=== PATIENT | female | born 1985 | race Caucasian/White ===

== ENCOUNTER → 2017-11-07 17:56 | Outpatient (CLI) | payer OTHER, SELFPAY ==
--- NOTE | 2017-11-07 18:23 | MRI_ITS ---
STUDY: MRI BRAIN WITH AND WITHOUT CONTRAST REASON FOR EXAM: Female, 32 years old. Bilateral extremity numbness TECHNIQUE: Standardized multiplanar fat and water weighted pulse sequences were obtained. 6 ml of Gadavist contrast material was administered intravenously for the contrast portion of the examination. COMPARISON: February 16, 2015 FINDINGS: Normal size of the ventricles and extra-axial spaces for the patient's age. Normal white matter tracts of the supratentorial brain. Normal bilateral basal ganglia. Normal thalami. There is no extra-axial fluid accumulation. Normal flow voids within the major intracranial circulation suggesting patency by spin echo criteria. Normal venous enhancement. There is no enhancing intra-axial or extra-axial abnormality. Normal sella turcica, pituitary gland, infundibular stalk, optic chiasm and hypothalamus. Normal tectal plate and pineal gland. Normal midbrain, yahaira and medulla. Normal cerebellum. Normal basal cisterns. Normal bilateral temporal bones. Normal bilateral internal auditory canals. No demonstrated orbital abnormality, within the constraints of a routine brain study. Normal visualized paranasal sinuses. Normal calvarium and skull base. Normal visualized soft tissue structures. Normal visualized upper cervical spine. No significant change since prior exam MRI/Brain W/WO Contrast IMPRESSION: Normal unenhanced and enhanced MRI of the brain. Electronically Signed: Ramiro Romano MD at 22:22 EST , Service support ,
== END ==
PROVIDERS: Family Provider Family Medicine; PCP Family Medicine; Visit Provider Psychiatry & Neurology Neurology
DX: R20.0 Anesthesia of skin (principal)
CPT/HCPCS: 70553; A9585

== ENCOUNTER → 2018-01-23 07:20 | Outpatient (CLI) | payer OTHER, SELFPAY ==
--- NOTE | 2018-01-23 10:31 | NEURO ---
NCS and/or EMG Patient Report Ordering Doctor: Kendra Paniagua DATE OF SERVICE: 01/23/18 This is a bilateral upper extremity nerve conduction study and a right upper extremity EMG performed on this 32-year-old female with symptoms in her arms and legs intermittently for the past 3-1/2 years. Denies pain. She does not notice abnormal sensations in her right second digit. She has had 2 MRIs of her brain over the past 2 years which have been normal and she is healthy otherwise. She does not drink significant alcohol. Bilateral upper extremity sensory and motor nerve conduction studies are performed demonstrating prolongation of the median motor distal latencies bilaterally, mild on the left, moderate on the right. Amplitudes are mildly reduced but conduction velocities are preserved. The median sensory responses are normal. The ulnar motor and sensory and radial sensory responses are normal. Median and ulnar F-wave latencies are preserved. Right upper extremity needle electromyography is performed. Muscles evaluated included the first dorsal interosseous, abductor pollicis brevis, brachioradialis, biceps, triceps and deltoid muscles. All muscles demonstrated normal insertional activity with absence of pathologic spontaneous activity. Motor unit potential recruitment pattern and amplitude was normal in all muscles tested. Impression: Abnormal electrophysiologic study of the upper extremities consistent with mild carpal tunnel syndrome on the left and moderate carpal tunnel syndrome on the right. No evidence of radiculopathy or mononeuropathy otherwise.
== END ==
PROVIDERS: Family Provider Family Medicine; PCP Family Medicine; Visit Provider Psychiatry & Neurology Neurology
DX: R20.0 Anesthesia of skin (principal)
CPT/HCPCS: 95886; 95912

== ENCOUNTER → 2018-02-05 07:48 | Outpatient (CLI) | payer OTHER, SELFPAY ==
--- NOTE | 2018-02-05 10:03 | NEURO ---
NCS and/or EMG Patient Report Ordering Doctor: Kendra Paniagua DATE OF SERVICE: 02/05/18 Is a bilateral lower extremity nerve conduction study performed on this 32-year-old female with intermittent numbness in her legs for approximately 3 years. She describes mid back pain. She describes leg achiness and a sensation of swelling without actual swelling in her legs intermittently and stiffness when she sits on the commode for extended time periods or when she sits crosslegged. Previous EMG and nerve conduction study of the upper extremities demonstrated mild carpal tunnel syndrome. Brief examination demonstrates normal reflexes strength and sensation as well as normal muscle bulk. Bilateral lower extremity sensory and motor nerve conduction study was performed. The common peroneal motor responses bilaterally are intact. The tibial motor responses bilaterally are intact. The sural sensory, superficial peroneal sensory and medial plantar sensory responses are bilaterally preserved. F-wave latencies from the tibial and common peroneal nerves bilaterally are normal as are the tibial H reflexes bilaterally. Impression: Normal nerve conduction study of the bilateral lower extremities. EMG testing was deferred.
--- NOTE | 2018-02-05 10:06 | NEURO_ITS ---
NCS and/or EMG Patient Report Ordering Doctor: Kendra Paniagua DATE OF SERVICE: 02/05/18 Is a bilateral lower extremity nerve conduction study performed on this 32-year- old female with intermittent numbness in her legs for approximately 3 years. She describes mid back pain. She describes leg achiness and a sensation of swelling without actual swelling in her legs intermittently and stiffness when she sits on the commode for extended time periods or when she sits crosslegged. Previous EMG and nerve conduction study of the upper extremities demonstrated mild carpal tunnel syndrome. Brief examination demonstrates normal reflexes strength and sensation as well as normal muscle bulk. Bilateral lower extremity sensory and motor nerve conduction study was performed. The common peroneal motor responses bilaterally are intact. The tibial motor responses bilaterally are intact. The sural sensory, superficial peroneal sensory and medial plantar sensory responses are bilaterally preserved. F-wave latencies from the tibial and common peroneal nerves bilaterally are normal as are the tibial H reflexes bilaterally. Impression: Normal nerve conduction study of the bilateral lower extremities. EMG testing was deferred.
== END ==
PROVIDERS: Family Provider Family Medicine; PCP Family Medicine; Visit Provider Psychiatry & Neurology Neurology
DX: R20.0 Anesthesia of skin (principal)
CPT/HCPCS: 95912

== ENCOUNTER → 2018-07-17 16:49 | Outpatient (CLI) | payer OTHER, SELFPAY ==
[2018-07-22 13:07] LABS: HPV APTIMA, High Risk Negative (Negative)
== END ==
PROVIDERS: Family Provider Family Medicine; PCP Family Medicine; Referring Provider Obstetrics & Gynecology; Visit Provider Obstetrics & Gynecology
DX: Z12.4 Encounter for screening for malignant neoplasm of cervix (principal)
CPT/HCPCS: 87624; 88175; G0145

== ENCOUNTER → 2019-05-08 | Outpatient (CLI) | payer OTHER, SELFPAY ==
[2019-04-29 13:58] VITALS: BMI 21.7
--- NOTE | 2019-05-08 12:54 | US_ITS ---
STUDY: ULTRASOUND OF THE FEMALE PELVIS - COMPLETE REASON FOR EXAM: Female, 33 years old. Pelvic pain TECHNIQUE: Transabdominal and Transvaginal TECHNICAL QUALITY: Adequate. COMPARISON: None. FINDINGS: The uterus is anteverted and is tilted to the left side of the pelvis. The uterus measures 7.4 x 5.4 x 4.5 cm cm. Normal uterine cervix. The endometrium measures 11 mm in thickness, and is hyperechoic. There is no demonstrated endometrial mass. There is no demonstrated myometrial mass. The right ovary is visualized. The right ovary measures 2.8 x 2.8 x 2.5 cm. There is no right ovarian cyst or ovarian mass. There is no visualized right adnexal mass or complex lesion. There is normal arterial and normal venous vascularity. The left ovary is visualized. The left ovary measures 2.7 x 2.3 x 1.9 cm. There is no left ovarian cyst or ovarian mass. There is no visualized left adnexal mass or complex lesion. There is normal arterial and normal venous vascularity. There is no fluid in the cul-de-sac. US/Pelvic (Non ) IMPRESSION: Normal female pelvis. Electronically Signed: Yousif Kindra, at 16:57 EDT Tel , Service support ,
--- NOTE | 2019-05-08 12:54 | US_ITS ---
STUDY: ULTRASOUND OF THE FEMALE PELVIS - COMPLETE REASON FOR EXAM: Female, 33 years old. Pelvic pain TECHNIQUE: Transabdominal and Transvaginal TECHNICAL QUALITY: Adequate. COMPARISON: None. FINDINGS: The uterus is anteverted and is tilted to the left side of the pelvis. The uterus measures 7.4 x 5.4 x 4.5 cm cm. Normal uterine cervix. The endometrium measures 11 mm in thickness, and is hyperechoic. There is no demonstrated endometrial mass. There is no demonstrated myometrial mass. The right ovary is visualized. The right ovary measures 2.8 x 2.8 x 2.5 cm. There is no right ovarian cyst or ovarian mass. There is no visualized right adnexal mass or complex lesion. There is normal arterial and normal venous vascularity. The left ovary is visualized. The left ovary measures 2.7 x 2.3 x 1.9 cm. There is no left ovarian cyst or ovarian mass. There is no visualized left adnexal mass or complex lesion. There is normal arterial and normal venous vascularity. There is no fluid in the cul-de-sac. US/Transvaginal Non- IMPRESSION: Normal female pelvis. Electronically Signed: Yousif Kindra, at 16:57 EDT Tel , Service support ,
== END | disposition home or self-care (01) ==
LOC: OPUS 12:52
PROVIDERS: Family Provider Family Medicine; PCP Family Medicine; Referring Provider Obstetrics & Gynecology; Visit Provider Obstetrics & Gynecology
DX: R10.2 Pelvic and perineal pain (principal)
CPT/HCPCS: 76830; 76856; 93976

== ENCOUNTER → 2019-05-28 | Outpatient (CLI) | payer OTHER, SELFPAY ==
[2019-05-28 13:09] VITALS: BMI 21.7
== END | disposition home or self-care (01) ==
LOC: LABSPEC 16:17
PROVIDERS: Family Provider Family Medicine; PCP Family Medicine; Referring Provider Nurse Practitioner Women's Health; Visit Provider Nurse Practitioner Women's Health
DX: N39.0 Urinary tract infection, site not specified (principal)
CPT/HCPCS: 87086; 87088

== ENCOUNTER 2020-01-19 08:00 | Outpatient (RCR) | payer OTHER, SELFPAY ==
[2019-07-28 08:14] VITALS: BMI 21.7
--- NOTE | 2020-01-07 17:52 | HP.PTEVAL ---
Patient's Visit Information ARLIN CASTREJON is a 34 year old F referred to Physical Therapy by Dr. Richard Perez MD with a diagnosis of pelvic pain/ LBP. Date of Evaluation: 01/07/20 Physical Therapist: SURYA Sinha - Visit Plan Frequency: 1-2x /Week Duration: 4-6 Weeks Plan: 1-2X/ week for 4-6 weeks for centralization of L anterior hip/groin pain using extension centralization principle, self OP with sag, and then progression to MT if needed. Once pain is more centralized work on postural exercises and core stability with HEP. May use modalities if needed. - Subjective Subjective: Pt has had a pain in her low pelvic area for 9 months or so and went to OBGYN at the end of last summer and they did an US og ovaries and that was fine and then went to PCP but did not. SHe tried more exercises, supplements, stretching and nothing worked and then it started to get worse and constant. She went to the Dr and he basically said he wanted to try tests but insurance would not cover it. She has always had LBP and it feels like it is compressed espcailly toward the end of the night. No N&T or weakness in legs. She has some L front of leg tingling a little. Pain is constant. If she changes positions her pain remains the same. She has an inversion table and that helps take the pressure off.....once off the inversion table the pain is right back. It feels like everything in her back is cruching when off the inversion table. She does not remember hurting herself. Pain is just straight across her LB for years and years. SHe has no weakness in her legs. She has night groin pain that wakes her up 4-5X/ week. It started to get worse in the last 3 month.... - Pain back pain Pain Intensity (Out of 10): 4 L groin pain Pain Intensity (Out of 10): 4 - Objective Gait: Normal gait pattern. Normal and able to walk on heels and toes. Trunk AROM: flexion 100%, EXt 25%, SB B and Rot B 75%. Patellar DTR's 2+/3. LE MMT: B hip ext 4/5, B hip abd 4+/5, B hip flex 4-/5, B knee flex and knee ext 4/5. Prone.... tightness in her LB. Prone to SHASHA.... stretching feeling in her spine. SHASHA to press ups..... 3X 10.... Pt very stiff in her back and was not able to come up to full ROM press up and did like to contract her buttocks during the press up. After doing the press ups she was able to walk with no L anterior hip pain. After the press ups she sat back down in the chair and after about 5 minutes the pain started to come back into her hip. We discussed and I demonstrated how to use a lumbar roll ro maintain good posture. - Goals Goal 1:: I HEP Goal Time Frame: 4-6 Weeks Goal 2:: Increase trunk AROM by 25% into extension to equal 50% extension ROM Goal Time Frame: 4-6 Weeks Goal 3:: Sit with upright posture during treatment sessions Goal Time Frame: 4-6 Weeks Goal 4:: Be able to abolish anterior hip pain Goal Time Frame: 4-6 Weeks - Rehabilitation Potential Rehabilitation Potential: Good - Anticipated Interventions Patient/Client Instruction: Educate patient on: Condition, Plan of Care For the Purpose of:: To decrease pain, To increase ROM, To improve nutrient delivery to tissue, To improve muscle performance and motor function, To improve ability to perform ADL's, To increase tolerance to activity/condition/position, To improve performance and independence with ADL's, To decrease level of supervision to perform tasks, To improve ability of physical actions for home/community/work/leisure, To improve gait and locomotor functions, To improve health of tissue, To increase flexibility/ROM Therapeutic Exercise to Include: Strength training, Body mechanics, Postural training, Flexibilty training, Passive ROM, Active ROM, Dynamic Lumbar Stabilization, Brown Exercises For the Purpose of:: To decrease pain, To increase ROM, To improve nutrient delivery to tissue, To improve muscle performance and motor function, To improve ability to perform ADL's, To increase tolerance to activity/condition/position, To improve health of tissue, To decrease soft tissue restriction, To increase flexibility/ROM Manual Therapy Techniques to Include: Mobilization, Soft tissue mobilization For the Purpose of:: To decrease pain, To increase ROM, To improve nutrient delivery to tissue, To improve muscle performance and motor function, To improve ability to perform ADL's, To increase tolerance to activity/condition/position, To improve health of tissue, To increase flexibility/ROM IF ES: Yes Cryotherapy (ice pack, ice massage): Yes Thermo therapy (hot pack): Yes Ultrasound (thermal/non thermal): Yes For the Purpose of:: To decrease pain, To improve nutrient delivery to tissue Thank you for the opportunity to evaluate your patient. For Medicare and Medicare HMO plans, please review the plan of care and approve it. It will need to be FAXED BACK to us at [phone] for Medicare purposes. For Medicare only, by signing this I certify the plan of care. Please let me know if there are questions or concerns regarding this plan of care. Physician Signature: Date:
--- NOTE | 2020-01-19 17:47 | HP.PTDCSUM ---
It has been my pleasure to treat ARLIN CASTREJON referred by Dr. Richard Perez MD, with the diagnosis of pelvic pain/ LBP for a total of 3 visit(s). Discharge Date: 01/19/20 Please see the following information for a summary of their discharge status. Subjective: Pt reports that she has had no change since starting PT and she feels that she has some swollen lymph nodes down in her groin and wants to call the Dr today. Pain is not constant and it comes and goes for no apparent reason or positioning. No N&T. No leg weakness. She does have some occassionl tingling with certain exercises she stated awhile afterwards. She has occassional back pain. The exercises that we have done here in the clinic have helped increase her spine ROM but it has not affected her hip positively or negatvley. back pain Pain Intensity (Out of 10): 0 L groin pain Pain Intensity (Out of 10): 2 % Improvement: 0 Objective/Function: Improvement in extension ROM but no improvement in L groin pain Goal 1:: I HEP Goal Progress: Goal Met Goal 2:: Increase trunk AROM by 25% into extension to equal 50% extension ROM Goal Progress: Progressing Goal 3:: Sit with upright posture during treatment sessions Goal Progress: Goal Met Goal 4:: Be able to abolish anterior hip pain Goal Progress: Not Progressing Plan: 1-2X/ week for 4-6 weeks for centralization of L anterior hip/groin pain using extension centralization principle, self OP with sag, and then progression to MT if needed. Once pain is more centralized work on postural exercises and core stability with HEP. May use modalities if needed. Discharge Comments: DC PT to physician If there are questions or concerns regarding this patient's physical therapy, please feel free to call me at [phone]. Thank you for the referral of this patient. Sincerely, Zunilda Maria, MPT
== END 2020-01-19 19:00 | disposition home or self-care (01) ==
LOC: PT 08:00
PROVIDERS: PCP Family Medicine; Referring Provider Family Medicine; Visit Provider Family Medicine
DX: R10.2 Pelvic and perineal pain (principal); M54.5 Low back pain
CPT/HCPCS: 97110; 97161; 97530

== ENCOUNTER → 2020-01-23 08:22 | Outpatient (CLI) | payer OTHER, SELFPAY ==
[2019-07-28 08:14] VITALS: BMI 21.7
--- NOTE | 2020-01-23 08:24 | CT_ITS ---
STUDY: CT ABDOMEN AND PELVIS WITH CONTRAST REASON FOR EXAM: Female, 34 years old. LEFT SIDE PELVIC PAIN X 9 MONTHS RADIATION DOSAGE (If Supplied By Facility): CTDIvol = ( 12.15 ) mGy, DLP = ( 369.80 ) mGycm TECHNIQUE: Transaxial images were obtained from the dome of the diaphragm to the symphysis pubis with oral contrast. Oral and amp; IV Readi-CAT and amp; 100mL Isovue-300 was administered. Sagittal and coronal images were reconstructed. Individualized dose optimization techniques were used for this CT. COMPARISON: None. FINDINGS: The visualized lung bases are unremarkable. The visualized portions of the heart are within normal limits. Normal liver. Normal gallbladder and extrahepatic biliary system. Normal spleen. Normal pancreas. Normal bilateral adrenal glands. Normal right kidney. Normal left kidney. Normal visualized stomach. Normal small intestine. Normal colon. The appendix is visualized and appears normal. Normal abdominal aorta. Normal inferior vena cava. Normal retroperitoneum. Normal urinary bladder. Follicles are seen in the left ovary. The largest measures 1.1 cm. Normal abdominal wall. Normal osseous structures. CT/Abdomen/Pelvis WITH Contrast IMPRESSION: Follicle seen in the left ovary. Electronically Signed: Richy Stein, at 8:53 EDT , Service support ,
== END ==
PROVIDERS: PCP Family Medicine; Referring Provider Family Medicine; Visit Provider Family Medicine
DX: R10.2 Pelvic and perineal pain (principal)
CPT/HCPCS: 74177; Q9967

== ENCOUNTER → 2020-01-29 09:02 | Outpatient (CLI) | payer OTHER, SELFPAY ==
[2019-07-28 08:14] VITALS: BMI 21.7
[2020-01-29 10:55] LABS: Absolute Lymphocyte Count 1.78 X10^3/uL (0.83-4.51); Absolute Neutrophil Count 4.2 X10^3/uL (2.0-7.7); Basophil# 0.06 X10^3/uL; Basophil% 0.9 % (0-1); Eosinophil# 0.05 X10^3/uL; Eosinophils% 0.8 % (0-5); Hematocrit 45.3 % (37-47); Hemoglobin 14.8 g/dL (12.0-15.0); Lymphocyte # 1.78 X10^3/ul (4.0); Lymphocyte % 27.1 % (19-41); Mean Corp Hgb Conc 32.7 g/dL (32-36); Mean Corpuscular Hgb 30.4 pg (27.0-32.0); Monocyte% 7.6 % (0-10); NRBC Flagged by Analyzer 0 % (0-5); Neutrophil # 4.15 X10^3/uL (2.7-7.7); Neutrophil % 63.3 % (47-70); Platelet Count 249 K/mm3 (150-450); RBC Distribution Width CV 12.9 % (11.6-14.6); RBC Distribution Width SD 43.8 fl (35.1-43.9); Red Blood Count 4.87 M/mm3 (4.2-5.4); White Blood Count 6.6 K/mm3 (4.4-11.0)
[2020-01-29 11:13] LABS: Erythrocyte Sedimentation Rate 2 mm/hr (0-20)
[2020-01-29 12:52] LABS: ALB/GLOB Ratio 1.6 RATIO (0.9-2.4); AST(SGOT) 23 U/L (15-37); Alanine Aminotransfer ALT/SGPT 20 U/L (13-56); Albumin, Serum 4.7 g/dL (3.2-5.0); Alkaline Phosphatase 57 U/L (45-117); Anion Gap 5 (5-15); BUN 10 mg/dL (7-18); CRP < 2.90 mg/L (0.0-3.0); Calcium,Total 8.8 mg/dL (8.5-10.1); Chloride 107 mmol/L (98-107); Creatinine, Serum 0.67 mg/dL (0.55-1.02); EST Glomerular Filtration Rate 106 mL/min (>60); Est Glom Filt Rate - Afr Amer 128 mL/min (>60); Glucose 83 mg/dL (74-106); Potassium 4.2 mmol/L (3.5-5.1); Protein, Total 7.7 g/dL (6.4-8.2); Sodium Level 140 mmol/L (136-145)
== END ==
PROVIDERS: PCP Family Medicine; Visit Provider Family Medicine
DX: R59.1 Generalized enlarged lymph nodes (principal)
CPT/HCPCS: 36415; 80053; 85025; 85652; 86140

== ENCOUNTER → 2020-02-13 10:22 | Outpatient (CLI) | payer OTHER, SELFPAY ==
[2019-07-28 08:14] VITALS: BMI 21.7
[2020-02-13 13:29] LABS: HIV - WCH Non-Reactive (Nonreactive); Hepatitis C Antibody Non-Reactive (Nonreactive)
[2020-02-13 17:37] LABS: Chlamydia Trachomatis by PCR Negative (Negative); Neisserai gonorrhoeae by PCR Negative (Negative); Probe Check PASS; Sample Adequacy Control PASS; Specimen Processing Control PASS
[2020-02-19 03:36] LABS: Rapid Plasmin Reagin (RPR) NONREACTIVE (NONREACTIVE)
== END ==
PROVIDERS: PCP Family Medicine; Referring Provider Family Medicine; Visit Provider Family Medicine
DX: R10.2 Pelvic and perineal pain (principal)
CPT/HCPCS: 36415; 86592; 86703; 86803; 87491; 87591

== ENCOUNTER → 2020-04-06 11:16 | Outpatient (CLI) | payer OTHER, SELFPAY ==
[2020-02-26 09:04] VITALS: BMI 21.7
[2020-04-06 13:21] LABS: Vitamin B12 510 pg/mL (211-911)
[2020-04-11 22:21] LABS: Vitamin B1, Thiamine 83.8 nmol/L (66.5-200.0)
== END ==
PROVIDERS: PCP Family Medicine; Referring Provider Family Medicine; Visit Provider Family Medicine
DX: G62.9 Polyneuropathy, unspecified (principal)
CPT/HCPCS: 36415; 82607; 84425

== ENCOUNTER → 2020-08-10 11:41 | Outpatient (CLI) | payer OTHER, SELFPAY ==
[2020-02-26 09:04] VITALS: BMI 21.7
[2020-08-10 15:19] LABS: Absolute Lymphocyte Count 1.36 X10^3/uL (0.83-4.51); Absolute Neutrophil Count 3.8 X10^3/uL (2.0-7.7); Basophil# 0.04 X10^3/uL; Basophil% 0.7 % (0-1); Eosinophil# 0.03 X10^3/uL; Eosinophils% 0.5 % (0-5); Lymphocyte # 1.36 X10^3/ul (4.0); Lymphocyte % 24.1 % (19-41); Mean Corp Hgb Conc 32.6 g/dL (32-36); Mean Corpuscular Hgb 30.8 pg (27.0-32.0); Mean Corpuscular Volume 94.7 fL (81-99); Mean Platelet Vol. 9.2 fl (6.2-12.0); Monocyte# 0.41 X10^3/uL; Monocyte% 7.3 % (0-10); NRBC Flagged by Analyzer 0 % (0-5); Neutrophil # 3.77 X10^3/uL (2.7-7.7); Neutrophil % 66.9 % (47-70); Platelet Count 288 K/mm3 (150-450); RBC Distribution Width CV 12.2 % (11.6-14.6); RBC Distribution Width SD 42.9 fl (35.1-43.9); Red Blood Count 4.54 M/mm3 (4.2-5.4); White Blood Count 5.6 K/mm3 (4.4-11.0)
[2020-08-10 15:35] LABS: Thyroid Stim Hormone (TSH) 3.37 uIU/mL (0.358-3.74)
[2020-08-12 21:41] LABS: CMV Antibody IgG < 0.60 U/mL (0.00-0.59); EBV Acute VCA IgM < 36.0 U/mL (0.0-35.9); EBV Nuclear Antigen IgG < 18.0 U/mL (0.0-17.9)
== END ==
PROVIDERS: PCP Family Medicine; Referring Provider Family Medicine; Visit Provider Family Medicine
DX: R59.0 Localized enlarged lymph nodes (principal); R53.83 Other fatigue
CPT/HCPCS: 36415; 84443; 85025; 86644; 86664; 86665

== ENCOUNTER → 2020-09-06 12:45 | Outpatient (CLI) | payer OTHER, SELFPAY ==
[2020-02-26 09:04] VITALS: BMI 21.7
--- NOTE | 2020-09-06 12:49 | CT_ITS ---
STUDY: CT SOFT TISSUE NECK WITH CONTRAST REASON FOR EXAM: Female, 35 years old. LT SIDED PALPABLE NECK MASS SINCE NOVEMBER. HAS NOT GROWN IN SIZE. MARKED WITH BB. RADIATION DOSAGE (If Supplied By Facility): CTDIvol = ( 10.88 ) mGy, DLP = ( 345.10 ) mGycm TECHNIQUE: The patient was scanned in a multi-detector CT scanner. High resolution transaxial imaging was performed following intravenous administration of IV 75mL Isovue-300. Sagittal and coronal images were reconstructed. Individualized dose optimization techniques were used for this CT. COMPARISON: None. FINDINGS: Normal bilateral parotid glands. Normal bilateral telesales advisor spaces. Normal bilateral parapharyngeal spaces. Normal bilateral carotid spaces. Normal bilateral sublingual and submandibular glands and spaces. Normal visualized nasopharynx. Normal retropharyngeal space. Normal perivertebral space. Normal visualized bilateral faucial tonsils. The visualized tongue, tongue base and oropharynx are normal. The visualized cervical lymph nodes (levels I-) are within normal size limits, and maintain normal morphology. 2 x 6 mm left posterior triangle lymph node just posterior to the left sternocleidomastoid muscle corresponding to the patient''s palpable abnormality. There is no demonstrated solid or cystic mass lesion. There is no abnormal contrast enhancement. Normal epiglottis, bilateral vallecula and hypopharynx. The pre-epiglottic and paraglottic adipose spaces are normal. Normal visualized bilateral piriform sinuses, aryepiglottic folds, vocal cords, and arytenoid-cricoid articulations. Normal subglottic trachea. Normal bilateral lobes of the thyroid gland. Normal visualized pulmonary apices. Normal visualized paranasal sinuses. Normal visualized cervical spine. CT/Soft Tissue Neck WITH Contrast IMPRESSION: Normal enhanced CT examination of the soft tissues of the neck. Palpable abnormality corresponds to a 2 x 6 mm left posterior triangle lymph node. Electronically Signed: Rashad Huff MD at 13:41 EST Tel , Service support ,
== END ==
PROVIDERS: PCP Family Medicine; Referring Provider Otolaryngology; Visit Provider Otolaryngology
DX: R22.0 Localized swelling, mass and lump, head (principal)
CPT/HCPCS: 70491; Q9967

== ENCOUNTER 2021-11-21 14:28 | Outpatient (CLI) | payer OTHER, SELFPAY ==
[2021-11-21 17:34] LABS: Absolute Lymphocyte Count 1.54 X10^3/uL (0.83-4.51); Absolute Neutrophil Count 4.8 X10^3/uL (2.0-7.7); Basophil# 0.04 X10^3/uL; Basophil% 0.6 % (0-1); Eosinophil# 0.02 X10^3/uL; Eosinophils% 0.3 % (0-5); Hematocrit 39.8 % (37-47); Hemoglobin 13.3 g/dL (12.0-15.0); Lymphocyte # 1.54 X10^3/ul (0.83-4.51); Mean Corp Hgb Conc 33.4 g/dL (32-36); Mean Corpuscular Hgb 30.9 pg (27.0-32.0); Mean Corpuscular Volume 92.6 fL (81-99); Mean Platelet Vol. 9.2 fl (6.2-12.0); Monocyte# 0.56 X10^3/uL; NRBC Flagged by Analyzer 0 % (0-5); Neutrophil # 4.82 X10^3/uL (2.7-7.7); Neutrophil % 68.8 % (47-70); Platelet Count 252 K/mm3 (150-450); RBC Distribution Width CV 12.3 % (11.6-14.6); RBC Distribution Width SD 42.5 fl (35.1-43.9)
[2021-11-21 18:28] LABS: ALB/GLOB Ratio 1.2 RATIO (0.9-2.4); AST(SGOT) 21 U/L (15-37); Alanine Aminotransfer ALT/SGPT 20 U/L (13-56); Albumin, Serum 4.1 g/dL (3.2-5.0); Alkaline Phosphatase 49 U/L (45-117); Anion Gap 7 (5-15); BUN 10 mg/dL (7-18); BUN/Creat Ratio 12.8 RATIO (10-20); Calcium,Total 8.9 mg/dL (8.5-10.1); Chloride 107 mmol/L (98-107); Creatinine, Serum 0.78 mg/dL (0.55-1.02); EST Glomerular Filtration Rate 87 mL/min (>60); Est Glom Filt Rate - Afr Amer 106 mL/min (>60); Ferritin 10 ng/mL (8-252); Globulin 3.3 g/dL (2.2-4.2); Glucose 95 mg/dL (74-106); Potassium 3.5 mmol/L (3.5-5.1); Protein, Total 7.4 g/dL (6.4-8.2); Sodium Level 141 mmol/L (136-145); Thyroid Stim Hormone (TSH) 3.12 uIU/mL (0.358-3.74)
[2021-11-23 13:25] LABS: Thyroid Peroxidase AB 9 IU/mL (0-34)
== END 2021-11-21 23:59 | disposition home or self-care (01) ==
LOC: MTLAB 14:30
PROVIDERS: Referring Provider Physician Assistant; Visit Provider Physician Assistant
DX: L65.9 Nonscarring hair loss, unspecified (principal); L68.0 Hirsutism
CPT/HCPCS: 36415; 80053; 82728; 84443; 85025; 86038; 86376

== ENCOUNTER 2021-11-25 17:09 | Outpatient (CLI) | payer OTHER, SELFPAY ==
[2021-12-05 20:51] LABS: HPV APTIMA, High Risk Negative (Negative)
== END 2021-11-25 23:59 | disposition home or self-care (01) ==
PROVIDERS: Visit Provider Obstetrics & Gynecology
DX: Z12.4 Encounter for screening for malignant neoplasm of cervix (principal)
CPT/HCPCS: 87624; 88175; G0145

== ENCOUNTER 2021-12-07 11:59 | Outpatient (CLI) | payer OTHER, SELFPAY ==
[2021-12-07 15:19] LABS: Absolute Lymphocyte Count 1.61 X10^3/uL (0.83-4.51); Basophil# 0.03 X10^3/uL; Basophil% 0.4 % (0-1); Eosinophil# 0.02 X10^3/uL; Eosinophils% 0.3 % (0-5); Hematocrit 40.9 % (37-47); Lymphocyte # 1.61 X10^3/ul (0.83-4.51); Lymphocyte % 22.5 % (19-41); Mean Corp Hgb Conc 34.2 g/dL (32-36); Mean Corpuscular Hgb 31.5 pg (27.0-32.0); Mean Corpuscular Volume 92.1 fL (81-99); Mean Platelet Vol. 9.1 fl (6.2-12.0); Monocyte# 0.43 X10^3/uL; NRBC Flagged by Analyzer 0 % (0-5); Neutrophil # 5.03 X10^3/uL (2.7-7.7); Neutrophil % 70.5 % (47-70); Platelet Count 312 K/mm3 (150-450); Red Blood Count 4.44 M/mm3 (4.2-5.4); White Blood Count 7.1 K/mm3 (4.4-11.0)
[2021-12-07 15:53] LABS: Rheumatoid Factor < 10.0 IU/mL (<15); Thyroid Stim Hormone (TSH) 4.89 uIU/mL (0.358-3.74)
[2021-12-09 16:06] LABS: Anti-dsDNA Ab 2 IU/mL (0-9)
[2021-12-14 17:25] LABS: HLA B27 Negative (.)
== END 2021-12-07 23:59 | disposition home or self-care (01) ==
LOC: MFPLAB 12:00
PROVIDERS: PCP Family Medicine; Referring Provider Family Medicine; Visit Provider Family Medicine
DX: M54.50 Low back pain, unspecified (principal); F39 Unspecified mood [affective] disorder
CPT/HCPCS: 36415; 81374; 84443; 84481; 85025; 86225; 86431

== ENCOUNTER → 2022-01-12 | Outpatient (CLI) | payer OTHER, SELFPAY ==
[2022-01-12 12:41] LABS: Free T3 2.9 pg/mL (2.18-3.98); T4 Free Direct 0.94 ng/dL (0.76-1.46); Thyroid Stim Hormone (TSH) 3.38 uIU/mL (0.358-3.74)
[2022-01-13 14:09] LABS: Anti-Scleroderma-70 AB <0.2 AI (0.0-0.9)
[2022-01-13 15:58] LABS: ANTINUCLEAR ANTIBODIES DIRECT Negative (Negative)
[2022-01-14 11:22] LABS: Anti-Thyroglobulin AB < 1.0 IU/mL (0.0-0.9); Thyroglobulin, Serum Qt. 34.3 ng/mL (1.5-38.5)
== END | disposition home or self-care (01) ==
LOC: MFPLAB 09:44
PROVIDERS: PCP Family Medicine; Referring Provider Family Medicine; Visit Provider Family Medicine
DX: E03.9 Hypothyroidism, unspecified (principal); R76.8 Other specified abnormal immunological findings in serum
CPT/HCPCS: 36415; 84432; 84439; 84443; 84481; 86038; 86235; 86800

== ENCOUNTER → 2022-02-23 | Outpatient (CLI) | payer OTHER, SELFPAY ==
[2022-02-24 16:42] LABS: ANTINUCLEAR ANTIBODIES DIRECT Negative (Negative)
== END | disposition home or self-care (01) ==
LOC: MFPLAB 09:58
PROVIDERS: PCP Family Medicine; Visit Provider Family Medicine
DX: R76.8 Other specified abnormal immunological findings in serum (principal)
CPT/HCPCS: 36415; 86038

== ENCOUNTER → 2022-03-16 | Outpatient (CLI) | payer OTHER, SELFPAY ==
--- NOTE | 2022-03-16 08:19 | RAD_ITS ---
STUDY: X-RAY - ABDOMEN/PELVIS REASON FOR EXAM: Female, 36 years old. sitz day 3 TECHNIQUE: Single AP view of the abdomen / pelvis. COMPARISON: None. FINDINGS: Normal visualized lung bases. There is an unremarkable bowel gas pattern. The visualized liver, spleen and kidneys are grossly normal in size and morphology. Normal soft tissue structures. Normal visualized osseous structures. RAD/Abdomen Single View IMPRESSION: Normal x-ray examination of the abdomen and pelvis. Electronically Signed: Rashad Huff MD at 8:56 EDT ,
== END | disposition home or self-care (01) ==
LOC: RAD 08:18
PROVIDERS: PCP Family Medicine; Referring Provider Internal Medicine Gastroenterology; Visit Provider Internal Medicine Gastroenterology
DX: R10.9 Unspecified abdominal pain (principal)
CPT/HCPCS: 74018

== ENCOUNTER → 2022-07-11 | Outpatient (CLI) | payer OTHER, SELFPAY ==
--- NOTE | 2022-07-11 12:44 | CT_ITS ---
STUDY: CT ABDOMEN AND PELVIS WITH CONTRAST REASON FOR EXAM: Female, 37 years old. Left sided abdominal pain -- oral X 2 YEARS RADIATION DOSAGE (If Supplied By Facility): CTDIvol = ( 9.22 ) mGy, DLP = ( 292.21 ) mGycm TECHNIQUE: Transaxial images were obtained from the dome of the diaphragm to the symphysis pubis with oral contrast. Oral and amp; IV Redi-CAT and amp; 75mL Isovue-300 was administered. Sagittal and coronal images were reconstructed. Individualized dose optimization techniques were used for this CT. COMPARISON: Comparison is made with prior study dated 01/23/2020. FINDINGS: The visualized lung bases are unremarkable. The visualized portions of the heart are within normal limits. Normal liver. Normal gallbladder and extrahepatic biliary system. Normal spleen. Normal pancreas. Normal bilateral adrenal glands. Normal right kidney. Normal left kidney. Normal visualized stomach. Normal small intestine. Normal colon. The appendix is visualized and appears normal. Normal abdominal aorta. Normal inferior vena cava. Normal retroperitoneum. Normal urinary bladder. Follicles are seen in both ovaries. Normal abdominal wall. Straightening of the normal lumbar lordosis. CT/Abdomen/Pelvis WITH Contrast IMPRESSION: Normal enhanced CT of the abdomen and pelvis. Electronically Signed: Richy Stein MD at 13:14 EDT ,
== END | disposition home or self-care (01) ==
LOC: CT 12:43
PROVIDERS: PCP Family Medicine; Referring Provider Internal Medicine Gastroenterology; Visit Provider Internal Medicine Gastroenterology
DX: R10.9 Unspecified abdominal pain (principal)
CPT/HCPCS: 74177; Q9967

== ENCOUNTER → 2022-08-01 | Outpatient (CLI) | payer OTHER, SELFPAY ==
[2022-08-01 13:32] LABS: Erythrocyte Sedimentation Rate 3 mm/hr (0-30)
[2022-08-01 13:46] LABS: Absolute Lymphocyte Count 1.79 X10^3/uL (0.83-4.51); Absolute Neutrophil Count 4.9 X10^3/uL (2.0-7.7); Basophil# 0.05 X10^3/uL; Basophil% 0.7 % (0-1); Eosinophil# 0.04 X10^3/uL; Eosinophils% 0.6 % (0-5); Hematocrit 42.8 % (37-47); Hemoglobin 14.5 g/dL (12.0-15.0); Lymphocyte # 1.79 X10^3/ul (0.83-4.51); Lymphocyte % 24.8 % (19-41); Mean Corp Hgb Conc 33.9 g/dL (32-36); Mean Corpuscular Hgb 30.5 pg (27.0-32.0); Mean Corpuscular Volume 90.1 fL (81-99); Mean Platelet Vol. 9.3 fl (6.2-12.0); Monocyte# 0.48 X10^3/uL; Monocyte% 6.6 % (0-10); NRBC Flagged by Analyzer 0 % (0-5); Neutrophil # 4.85 X10^3/uL (2.7-7.7); Platelet Count 282 K/mm3 (150-450); RBC Distribution Width CV 12.3 % (11.6-14.6); RBC Distribution Width SD 40.7 fl (35.1-43.9); Red Blood Count 4.75 M/mm3 (4.2-5.4); White Blood Count 7.2 K/mm3 (4.4-11.0)
[2022-08-01 13:54] LABS: Hemoglobin A1c 5.1 % (3.8-5.6)
[2022-08-01 14:09] LABS: ALB/GLOB Ratio 1.4 RATIO (0.9-2.4); AST(SGOT) 22 U/L (15-37); Alanine Aminotransfer ALT/SGPT 22 U/L (13-56); Albumin, Serum 4.6 g/dL (3.2-5.0); Alkaline Phosphatase 61 U/L (45-117); Anion Gap 9 (5-15); BUN 9 mg/dL (7-18); BUN/Creat Ratio 13.1 RATIO (10-20); CRP < 2.90 mg/L (0.0-3.0); Calcium,Total 9.2 mg/dL (8.5-10.1); Chloride 103 mmol/L (98-107); Creatinine, Serum 0.69 mg/dL (0.55-1.02); EST Glomerular Filtration Rate 101 mL/min (>60); Est Glom Filt Rate - Afr Amer 122 mL/min (>60); Globulin 3.2 g/dL (2.2-4.2); Glucose 86 mg/dL (74-106); LDH 170 U/L (84-246); Potassium 3.7 mmol/L (3.5-5.1); Protein, Total 7.8 g/dL (6.4-8.2); Sodium Level 137 mmol/L (136-145)
[2022-08-03 12:08] LABS: Anti-Centromere B Ab <0.2 AI (0.0-0.9); Anti-Chromatin <0.2 AI (0.0-0.9); Anti-Jo <0.2 AI (0.0-0.9); Anti-Scleroderma-70 AB <0.2 AI (0.0-0.9); RNP Ab <0.2 AI (0.0-0.9); SJOGREN'S Anti-SS-A test < 0.2 AI (0.0-0.9); SJOGREN'S Anti-SS-B test < 0.2 AI (0.0-0.9); Smith Ab <0.2 AI (0.0-0.9)
[2022-08-03 16:09] LABS: Endomysial Antibody IgA Negative (Negative)
[2022-08-04 15:06] LABS: Anti-dsDNA Ab 3 IU/mL (0-9)
[2022-08-04 15:08] LABS: Immunoglobulin A 138 mg/dL (87-352); t-Transglutaminase IgA <2 U/mL (0-3)
[2022-08-09 15:08] LABS: Albumin 4.6 g/dL (2.9-4.4); Alpha-1-Globulins 0.3 g/dL (0.0-0.4); Alpha-2-Globulins 0.7 g/dL (0.4-1.0); Cytoplasmic Ab (C-ANCA) <1:20 titer (Neg:<1:20); Gamma Globulin 0.9 g/dL (0.4-1.8); Immunoglobulin A 133 mg/dL (87-352); Immunoglobulin E 13 IU/mL (6-495); Immunoglobulin G 946 mg/dL (586-1602); Immunoglobulin M 98 mg/dL (26-217); PROEL- TOTAL PROTEIN 7.4 g/dL (6.0-8.5)
[2022-08-09 16:06] LABS: Perinuclear Ab (P-ANCA) <1:20 titer (Neg:<1:20)
== END | disposition home or self-care (01) ==
LOC: LAB 11:30
PROVIDERS: PCP Family Medicine; Visit Provider Internal Medicine Gastroenterology
DX: R10.9 Unspecified abdominal pain (principal)
CPT/HCPCS: 36415; 80053; 82784; 82785; 83036; 83516; 83615; 84165; 85025; 85652; 86140; 86225; 86235; 86255; 86256; 86334

== ENCOUNTER 2022-09-28 09:08 | Outpatient (CLI) | payer OTHER, SELFPAY ==
[2022-09-28 10:53] LABS: Thyroid Stim Hormone (TSH) 3.42 uIU/mL (0.358-3.74)
[2022-09-29 16:09] LABS: Cytoplasmic Ab (C-ANCA) <1:20 titer (Neg:<1:20)
[2022-09-29 20:07] LABS: Perinuclear Ab (P-ANCA) <1:20 titer (Neg:<1:20)
== END 2022-09-28 23:59 | disposition home or self-care (01) ==
PROVIDERS: PCP Family Medicine; Referring Provider Internal Medicine Gastroenterology; Visit Provider Internal Medicine Gastroenterology
DX: R10.9 Unspecified abdominal pain (principal); R22.1 Localized swelling, mass and lump, neck
CPT/HCPCS: 36415; 84443; 86256

== ENCOUNTER → 2022-10-04 | Outpatient (CLI) | payer OTHER, SELFPAY ==
[2022-10-05 15:08] LABS: Anti-Centromere B Ab <0.2 AI (0.0-0.9); Anti-Chromatin <0.2 AI (0.0-0.9); Anti-Jo <0.2 AI (0.0-0.9); Anti-Scleroderma-70 AB <0.2 AI (0.0-0.9); RNP Ab <0.2 AI (0.0-0.9); SJOGREN'S Anti-SS-A test < 0.2 AI (0.0-0.9); SJOGREN'S Anti-SS-B test < 0.2 AI (0.0-0.9); Smith Ab <0.2 AI (0.0-0.9)
[2022-10-05 17:51] LABS: Anti-Mitochondrial AB <20.0 Units (0.0-20.0); Anti-Smooth Muscle ABS 45 Units (0-19); Anti-dsDNA Ab 2 IU/mL (0-9)
== END | disposition home or self-care (01) ==
PROVIDERS: PCP Family Medicine; Referring Provider Internal Medicine Gastroenterology; Visit Provider Internal Medicine Gastroenterology
DX: R76.8 Other specified abnormal immunological findings in serum (principal)
CPT/HCPCS: 36415; 83516; 86225; 86235

== ENCOUNTER → 2023-01-29 | Outpatient (CLI) | payer OTHER, SELFPAY ==
[2023-02-03 15:08] LABS: HPV APTIMA, High Risk Negative (Negative)
== END | disposition home or self-care (01) ==
LOC: LABSPEC 11:27
PROVIDERS: PCP Family Medicine; Referring Provider Registered Nurse; Visit Provider Registered Nurse
DX: Z12.4 Encounter for screening for malignant neoplasm of cervix (principal)
CPT/HCPCS: 87624; 88175; G0145

== ENCOUNTER → 2023-09-28 | Outpatient (CLI) | payer OTHER, SELFPAY ==
--- NOTE | 2023-09-28 10:36 | BI_ITS ---
MAMMOGRAPHY - BILATERAL SCREENING REASON FOR EXAM: Female, 38 years old. Routine annual screening examination. PERTINENT HISTORY: Mother with breast cancer. Grandmother with breast cancer. TECHNIQUE: Digital bilateral breast zehra (3D mammographic acquisition) in the CC and MLO projections. 2-D mediolateral oblique (MLO) and craniocaudad (CC) views of both breasts were obtained. CAD: Full Field Digital Mammography with Computer Added Detection was performed. COMPARISON: Comparison is made with prior outside examination dated March 18, 2015. FINDINGS: Breast Composition: The breasts are extremely dense, which lowers the sensitivity of mammography. There are no dominant masses or suspicious calcifications. No other significant abnormalities are identified. There has been no significant change since the prior study. BI/SCRN MAMM (CAD)W/ZEHRA BILAT IMPRESSION: Stable bilateral screening mammogram. Yearly follow-up mammogram recommended. (A) ASSESSMENT CATEGORY: BIRADS Category 1: Negative. A letter regarding these results will be sent to the patient by the facility within 30 days. Approximately 10% of breast cancers are not detected by mammography. A normal mammogram should not delay biopsy of a clinically suspicious abnormality. [id number] Electronically Signed: Richy Stein MD at 15:24 EST ,
--- OUTSIDE RECORDS SUMMARY | 2023-09-28 11:47 | XMS RPT_ITS | CCD ---
Author Name Unknown Address [address] [place] [address] Organization [facility] Care Team Providers Care Long Line Teamster Name Role Phone Joanne Rossi LPN N Unavailable Unavailab le Flo MCFADDEN, Joanne N Unavailable Unavailab le Flo MCFADDEN, Joanne N Unavailable Unavailab le Medications Completed/Discontinued Medications Medication Drug Class(es) Dates Sig (Normalized) Sig (Original) predniSONE 10 mg oral tablet (3 sources) Corticosteroid Start: 03-04-2017 PREDNISONE 10 MG TABS Take 4 pills for 3 days, 3 pills for 3 days, 2 pills for 3 days and 1 pill for 3 days PREDNISONE [id number] Christina Sullivan PA-C Problems Problem Classification Problem Date Documented Da te Episodic/Chronic Other connective tissue disease (2 sources) Swelling of lower limb; Translations: [Localized swelling, mass and lump, right lower limb] Onset: 03-04-2017 03-04-2017 Episodic Other skin disorders (3 sources) Eruption; Translations: [Rash and other nonspecific skin eruption] Onset: 03-04-2017 03-04-2017 Episodic Results Test Name Value Interpretation Reference Range Facil ity Vital Signs Date Time Vital Sign Value Performing Clinician Faci renetta 03-04-2017 08:25-0400 BMI (Body Mass Index) 22.39 kg/m2 Joanne Rossi LPN [facility] No w Clinic Work Phone: 03-04-2017 08:25-0400 Body Temperature 98.9 [degF] Joanne Rossi LPN [facility] Now Cli ravi Work Phone: 03-04-2017 08:25-0400 BP Diastolic 62 mm[Hg] Joanne Rossi LPN [facility] Now [facility] ic Work Phone: 03-04-2017 08:25-0400 BP Systolic 112 mm[Hg] Joanne Rossi LPN [facility] Now [facility] Work Phone: 03-04-2017 08:25-0400 Height 160.02 cm Joanne Rossi LPN [facility] Now [facility] Work Phone: 03-04-2017 08:25-0400 Pulse (Heart Rate) 90 /min Joanne Rossi LPN [facility] Now C linic Work Phone: 03-04-2017 08:25-0400 Pulse Oximetry 99 % Joanne Rossi LPN [facility] Now [facility] ic Work Phone: 03-04-2017 08:25-0400 Respiratory Rate 14 /min Joanne Rossi LPN [facility] Now [facility]vi Work Phone: 03-04-2017 08:25-0400 Weight 57.34 kg Joanne Rossi LPN [facility] Now [facility] ic Work Phone: Plan of Treatment Date Care Activity Detail Author Start: 03-04-2017 End: 03-04-2017 Appointment Appointment [facility] Work Phone: Start: 03-04-2017 End: 03-04-2017 Venous doppler Venous doppler [facility] Work Phone: Patient Education ACUTE%20RASH [facility] Now Cl inic Work Phone: Additional Source Comments FOR RECORDS PERTAINING TO PATIENTS WHO ARE OR HAVE BEEN ENROLLED IN A CHEMICAL DEPENDENCY/SUBSTANCEABUSE PROGRAM, SOME INFORMATION MAY BE OMITTED. This clinical summary was aggregated from multiple sources. Caution should be exercised in using it in the provision of clinical care. This summary normalizes information from multiple sources, and as a consequence, information in this document may materially change the coding, format and clinical context of patient data. In addition, data may be omitted in some cases. CLINICAL DECISIONS SHOULD BE BASED ON THE PRIMARY CLINICAL RECORDS. [facility]. provides no warranty or guarantee of the accuracy or completeness of information in this document.
== END | disposition home or self-care (01) ==
LOC: OPBI 10:35
PROVIDERS: PCP Family Medicine; Referring Provider Registered Nurse; Visit Provider Registered Nurse
DX: Z12.31 Encounter for screening mammogram for malignant neoplasm of breast (principal); Z80.3 Family history of malignant neoplasm of breast
CPT/HCPCS: 77063; 77067

== ENCOUNTER → 2025-07-30 | Outpatient (CLI) | payer OTHER, SELFPAY ==
--- NOTE | 2025-07-30 10:00 | BI_ITS ---
EXAM: SCRN MAMM (CAD)W/ZEHRA BILAT DATE: 07/30/2025 CLINICAL HISTORY: F, Age 40 y/o , SCREEN FOR BREAST CANCER Mother with breast cancer. Grandmother with breast cancer. TECHNIQUE: Procedure Code: [id number] Modality: MG Procedure: SCRN MAMM (CAD)W/ZEHRA BILAT COMPARISON: Prior exam(s) dated September 28, 2023.. FINDINGS: TISSUE DENSITY: The breasts are extremely dense, which lowers the sensitivity of mammography. Bilateral Breast Mammographic Findings: There is no evidence of a 1.8 cm 1.6 cm spiculated nodule density in the central deep upper aspect of the left breast. Correlation with ultrasound recommended for further evaluation. No cluster of microcalcification is seen at this time. BI/SCRN MAMM (CAD)W/ZEHRA BILAT IMPRESSION: 1.8 cm 1.6 cm spiculated nodule seen in the deep central upper aspect of the le ft breast as described. Sonographic correlation recommended. OVERALL FINAL ASSESSMENT BI-RADS 0: INCOMPLETE - NEED ADDITIONAL IMAGING EVALUATION. RECOMMENDATION: Ultrasound Recommended Additional Recommendation none A letter with findings and recommendations will be mailed to the patient. Reading Location: [facility]
--- NOTE | 2025-07-30 14:19 | US_ITS ---
PROCEDURE: BREAST LIMITED UNILATERAL 07/30/2025 REASON FOR EXAM: F, Age 40 y/o , ABNORMAL MAMMOGRAM Abnormal screening mammogram. COMPARISON: . TECHNIQUE: Procedure Code: [id number] Modality: US Procedure: BREAST LIMITED UNILATERAL. Sonogram of the upper aspect of the left breast was examined with ultrasound. FINDINGS: Dense fibroglandular tissue. No suspicious abnormality is seen. Additional mammographic views including 90 degree lateral and compression spot views will be obtained. US/Breast Limited Unilateral IMPRESSION: Unremarkable sonographic examination. Additional views will be obtained. BI-RADS 0: INCOMPLETE - NEED ADDITIONAL IMAGING EVALUATION. RECOMMENDATION: Additional Views obtained/call backs Reading Location: [facility]
--- NOTE | 2025-07-30 15:13 | BI_ITS ---
EXAM: DIAG MAMM W/CAD, UNILAT 07/30/2025 CLINICAL HISTORY: F, Age 40 y/o , LUMP TO LEFT BREAST TECHNIQUE: Procedure Code: [id number] Modality: MG Procedure: DIAG MAMM W/CAD, UNILAT.. 90 degree lateral and compression spot views of the left breast were obtained. COMPARISON: Prior exam(s) dated prior mammogram done earlier in the day as well as prior sonogram done earlier in the day.. FINDINGS: TISSUE DENSITY: The breasts are extremely dense, which lowers the sensitivity of mammography. Bilateral Breast Mammographic Findings: No definite nodular density is seen on these additional views. This most likely represents focal dense breast tissue. BI/DIAG MAMM W/CAD, UNILAT IMPRESSION: No suspicious abnormality is seen on this examination OVERALL FINAL ASSESSMENT BI-RADS 2: BENIGN RECOMMENDATION: Routine annual follow-up in 1 Year Additional Recommendation none A letter with findings and recommendations will be mailed to the patient. Reading Location: [facility]
[2025-08-04 09:09] LABS: HPV APTIMA, High Risk Negative (Negative)
== END | disposition home or self-care (01) ==
PROVIDERS: PCP Family Medicine; Referring Provider Nurse Practitioner Family; Visit Provider Nurse Practitioner Family
DX: Z12.31 Encounter for screening mammogram for malignant neoplasm of breast (principal); Z80.3 Family history of malignant neoplasm of breast; N63.0 Unspecified lump in unspecified breast; R92.8 Other abnormal and inconclusive findings on diagnostic imaging of breast; Z12.4 Encounter for screening for malignant neoplasm of cervix
CPT/HCPCS: 76642; 77061; 77063; 77065; 77067; 87624; 88175; G0145; G0279